=== PATIENT | male | born 1935 | race Hispanic/Latino ===

== ENCOUNTER 2018-04-05 03:55 | Inpatient (IN) | payer MEDICARE ==
[~2018-04-05] VITALS: Ht 172.7 cm; Wt 88.3 kg
[~2018-04-05 03:55] MED LIST: ASPIRIN PO; ASPIRIN81 MG PO; FISH OIL PO; LIPITOR; LOPRESSOR25 MG PO; LOSARTAN POTASS25 MG PO; LOVAZA; LOVAZA1 GM PO; METOPROLOL PO; PLAVIX; PLAVIX75 MG PO; PRAVASTATIN SOD10 MG PO
--- OUTSIDE RECORDS SUMMARY | 2018-04-05 03:57 | XMS REPORT | Summary of Care ---
Author Author VALENTINA CARRASQUILLO M.D. Organization Unknown Address Unknown Phone Unavailable Care Team Providers Care Azure Developer Name Role Phone VALENTINA CARRASQUILLO M.D. Unavailable Unavailable BONNIE MCKINNEY M.D. Unavailable Unavailable MARISSA BARNETT [facility], MARTINEZ Mullins Unavailable Unavailable MARTINEZ ANN M.D. Unavailable Unavailable Unavailable Functional Status Name Dates Details Functional status health issues are not documented Status: Name Dates Details Cognitive status health issues are not documented Status: Problems Name Dates Details Mixed hyperlipidemia (272.2, E78.2) Status: Active Type 2 diabetes mellitus (250.00, E11.9) Status: Active Essential (primary) hypertension (401.9, I10) Status: Active Hypercalcemia (275.42, E83.52) Status: Active Coronary artery disease (414.00, I25.10) Status: Active Medications Name Dates Details Clopidogrel Bisulfate 75 MG Oral Tablet TAKE 1 TABLET DAILY Quantity: 90 VALENTINA CARRASQUILLO M.D. * Start : 18-Dec-2011 Active Metoprolol Succinate ER 25 MG Oral Tablet Extended Release 24 Hour 1 a day per medical technician assistant * Refills: 0 FAYE M.Berenice., BONNIE * Start : 18-Dec-2011 Active Cozaar 50 MG Oral Tablet TAKE 1 TABLET DAILY. * Refills: 0 FAYE M.D., BONNIE * Start : 18-Dec-2011 Active Ecotrin Low Strength 81 MG Oral Tablet Delayed Release TAKE 1 TABLET DAILY. * Refills: 0 FAYE M.D., BONNIE * Start : 18-Dec-2011 Active Pravastatin Sodium 10 MG Oral Tablet TAKE 1 TABLET DAILY. * Refills: 0 Active Allergies and Adverse Reactions Name Dates Details No Known Drug Allergies (Allergy) Status: Active Past Medical History Name Dates Details History of Prostate Cancer (V10.46) Status: Resolved Procedures Procedure Dates Details History of Cholecystectomy Completed History of Cath Stent Placement Completed History of Prostate Surgery Completed Immunization Name Dates Details Immunizations not documented Family History Name Dates Details Family history of Hypertension (V17.49) Status: Active Social History Name Dates Details Unknown if ever smoked Vital Signs Date Test Result Details [id number] BP Systolic 143 mm[Hg] Status: Comments: Location: RUE; Position: Sitting BP Diastolic 77 mm[Hg] Status: Comments: Location: RUE; Position: Sitting Height 68 in Status: Weight 189 lb Status: Body Mass Index Calculated 28.74 kg/m2 Status: Body Surface Area Calculated 2 m2 Status: Heart Rate 52 /min Status: Comments: Location: R Radial; Results Date Description Value Details Results not documented Plan of Care Name Dates Details Planned Observations Planned Goals not documented Planned Encounters Appointment; VALENTINA CARRASQUILLO M.D. On: 24-Feb-2019 11:40 Instructions Name Dates Details Instructions not documented Encounters Appointment; VALENTINA CARRASQUILLO M.D. Encounter Diagnosis: Problem not documented On: 10-Sep-2017 9:20 Appointment; VALENTINA CARRASQUILLO M.D. Encounter Diagnosis: Problem not documented On: 25-Feb-2018 11:40
[2018-04-05] MEDS ORDERED: ASPIRIN 81 MG CHEW TAB PO ONE (04:15)
[2018-04-05] MEDS ORDERED: ACETAMINOPHEN 325 MG TAB PO ONE (04:15)
[2018-04-05] MEDS ORDERED: SODIUM CHLORIDE 0.9% 1000ML 1,000 ML IV ONE (04:15)
[2018-04-05 05:19] LABS: BASOPHILS % 0.3 % (0.0-1.0); EOSINOPHILS % 0.1 % (0.0-6.0); HEMATOCRIT 47.5 % (38.2-49.6); HEMOGLOBIN 16.3 g/dL (14.0-18.0); LYMPHOCYTES # (AUTO) 0.6 (1.0-3.2); LYMPHOCYTES % 8.7 % (18.0-39.1); MEAN CORPUSCULAR HEMOGLOBIN 30.1 pg (28-32); MEAN CORPUSCULAR HGB CONC 34.3 g/dL (31-35); MEAN CORPUSCULAR VOLUME 87.8 fL (81-99); MONOCYTES # (AUTO) 0.6 (0.2-0.8); MONOCYTES % 9.3 % (4.4-11.3); NEUTROPHILS # (AUTO) 5.5 (2.1-6.9); NEUTROPHILS % 81.3 % (38.7-80.0); PLATELET COUNT 202 x10e3/uL (140-360); RED BLOOD COUNT 5.41 x10e6/uL (4.3-5.7); RED CELL DISTRIBUTION WIDTH 12.4 % (11.7-14.4)
--- NOTE | 2018-04-05 05:22 | Diagnostic Imaging Report ---
EXAM: CHEST 2 VIEWS, PA and lateral INDICATION: Cough, fever COMPARISON: AP view of the chest January 20, 2011 FINDINGS: LINES/TUBES: None LUNGS: Right lower lobe airspace opacities. PLEURA: No effusions or pneumothorax. HEART AND MEDIASTINUM: Normal size and contour. BONES AND SOFT TISSUES: No acute findings. IMPRESSION: Right lower lobe airspace opacity suggestive of pneumonia in the setting of cough and fever Signed by: Dr. Angela Barnes M.D. on 04/05/2018 5:19 AM
[2018-04-05 05:26] LABS: BILIRUBIN,URINE NEGATIVE (NEGATIVE); CLARITY,URINE SL CLOUDY (CLEAR); COLOR,URINE YELLOW (YELLOW); KETONES,URINE 1+ (NEGATIVE); LEUKOCYTE ESTERASE ,URINE NEGATIVE (NEGATIVE); NITRITE,URINE NEGATIVE (NEGATIVE); PROTEIN,URINE DIPSTICK TRACE (NEGATIVE); URINE UROBILINOGEN 0.2 mg/dL (0.2 - 1)
[2018-04-05 05:39] LABS: STREPTOCOCCUS GRP A ANTIGEN NEGATIVE (NEGATIVE)
[2018-04-05 05:41] LABS: WBC,URINE (MAN) 0-5 /HPF (0-5)
[2018-04-05 05:42] LABS: BACTERIA,URINE MODERATE /HPF; EPITHELIAL CELLS,URINE RARE /LPF; RBC,URINE 21-50 /HPF (0-5); TRANSITIONAL EPI CELLS,URINE RARE
[2018-04-05 05:43] LABS: YEAST,URINE RARE
[2018-04-05 05:47] LABS: INFLUENZAE A&B ANTIGEN (RAPID) POSITIVE FLU A (NEGATIVE)
[2018-04-05 05:59] LABS: ALANINE AMINOTRANSFERASE 44 IU/L (0-55); ALBUMIN 4.2 g/dL (3.5-5.0); ALBUMIN/GLOBULIN RATIO 1.3 (0.8-2.0); ALKALINE PHOSPHATASE 91 IU/L (40-150); ANION GAP 14.1 mmol/L (8-16); BLOOD UREA NITROGEN 13 mg/dL (7-26); BUN/CREATININE RATIO 13 (6-25); CALCIUM 10.7 mg/dL (8.4-10.2); CARBON DIOXIDE 25 mmol/L (22-29); CHLORIDE 96 mmol/L (98-107); CREATINE KINASE 83 IU/L (30-200); CREATININE, SERUM 0.98 mg/dL (0.72-1.25); EST GLOMERULAR FILTRATION RATE > 60 ML/MIN (60-); GLUCOSE 175 mg/dL (74-118); POTASSIUM 4.1 mmol/L (3.5-5.1); SODIUM 131 mmol/L (136-145)
[2018-04-05] MEDS ORDERED: SODIUM CHLORIDE 0.9% 250ML 250 ML ONE (06:12)
[2018-04-05] MEDS ORDERED: ONDANSETRON HCL INJ 2MG/ML 2ML 2 MG/ML VIAL IV PRN (06:15)
[2018-04-05] MEDS ORDERED: ACETAMINOPHEN 325 MG TAB PO PRN (06:15)
[2018-04-05] MEDS: CEFTRIAXONE SOD 1 GM/NS 50 ML 50 ML IV SCH (06:21)
[2018-04-05] MEDS: OSELTAMIVIR PHOSPHATE 75 MG CAP PO SCH ×3 (06:21→16:43)
[2018-04-05] MEDS: SODIUM CHLORIDE 0.9% 1000ML 1,000 ML IV SCH ×3 (06:22→22:14)
[2018-04-05] MEDS ORDERED: SODIUM CHLORIDE 0.9% 1000ML 1,000 ML ONE (06:27)
--- OUTSIDE RECORDS SUMMARY | 2018-04-05 06:34 | XMS REPORT ---
Author Author [facility] Address Unknown Phone Unavailable Care Team Providers Care Physical Optics Teacher Name Role Phone Cheryle GRAVES Unavailable Unavailable Problems This patient has no known problems. Allergies, Adverse Reactions, Alerts This patient has no known allergies or adverse reactions. Medications This patient has no known medications. Results Test Description Test Time Test Comments Text Results Atomic Results Result Comments CHEST 2 VIEWS 2018-04-05 05:17:00 [facility] [address] [place] [address] Patient Name: ARSENIO DORANTES JR MR #: [id number] : 1935 Age/Sex: 83/M Req #: [id number] Adm Physician: Ordered by: WAYLON GRAVES MD Report #: [id number] Location: ER Room/Bed: Procedure: [id number] DX/CHEST 2 VIEWS Exam Date: Exam Time: REPORT STATUS: Signed EXAM: CHEST 2 VIEWS, PA and lateral INDICATION: Cough, fever COMPARISON: AP view of the chest January 20, 2011 FINDINGS: LINES/TUBES: None LUNGS: Right lower lobe airspace opacities. PLEURA: No effusions or pneumothorax. HEART AND MEDIASTINUM: Normal size and contour. BONES AND SOFT TISSUES: No acute findings. IMPRESSION: Right lower lobe airspace opacity suggestive of pneumonia in the setting of cough and fever Signed by: Dr. Geraldo Schmidt M.D. on 04/05/2018 5:19 AM Dictated By: GERALDO SCHMIDT MD 8 Transcribed By: ANTON on 04/05/18518 COPY TO: WAYLON GRAVES MD
[2018-04-05] MEDS: AZITHROMYCIN 500MG/NS 250 ML 250 ML IV SCH (06:50)
[2018-04-05] MEDS: ALBUTEROL SULF 0.083% NEB SOLN 3 ML NEB NEB SCH ×5 (07:00→23:45)
[2018-04-05] MEDS: IPRATROPIUM BROMIDE 0.02% 2.5 ML NEB NEB SCH ×4 (07:00→23:45)
--- NOTE | 2018-04-05 07:00 | NUR ---
RECEIVED REPORT FROM OFF GOING NURSE. PATIENT IN ROOM IN BED, AWAKE AND ALERT. NO S/S OF ACUTE DISTRESS. RESP EVEN AND NONLABORED. NO C/O PAIN OR DISCOMFORT AT THIS TIME. PENDING ROOM ASSIGNMENT FOR ADMISSION. BED DOWN, CALL LIGHTIN REACH, WILL CONTINUE TO MONITOR.
--- NOTE | 2018-04-05 07:29 | History and Physical ---
This is an 83-year-old gentleman who comes in with severe fever, chills, sore throat, and coughing. HISTORY OF PRESENT ILLNESS: This is Mr. Pagan who is an 83-year-old gentleman with a history of hypertension, history of coronary artery disease, was in his usual state of health until the patient started with fever, chills, and cough for the past 2 days. Feeling very lethargic and very tired and congested. The patient came into the emergency room with fever. Was diagnosed with influenza virus and also with pneumonia, and admitted for further care. PAST MEDICAL HISTORY: History of hypertension, history of coronary artery disease, history of prostate cancer, history of hypertension, history of hyperlipidemia. MEDICATIONS: He takes at home are: 1. Aspirin 81 mg. 2. Plavix 75 mg daily. 3. Losartan 25 mg daily. 4. Metoprolol 25 mg bid. 5. Leroy-3 fatty acid, Lovaza. 6. Pravastatin 10 mg at nighttime. SURGICAL HISTORY: Includes history of cholecystectomy, history of prostate surgery, history of coronary stents 4 times, and his service consultant is in [place] [facility]. ALLERGIES: NO DRUG ALLERGIES PRESENT. REVIEW OF SYSTEMS: Negative for chest pain. Positive for shortness of breath. No nausea, vomiting, diarrhea. No constipation, rectal bleeding, hematochezia, and no hematemesis. No diplopia. No blurry vision. Positive for fever and positive for chills and congestion. SOCIAL HISTORY: Noncontributory. No smoking. No ETOH. No IV drug abuse. PHYSICAL EXAMINATION GENERAL: The patient is alert and oriented times 3. VITAL SIGNS: Temperature is 102.9, pulse of 119, blood pressure is 157/96, respirations of 24, pulse ox 94% on 2 L of oxygen. HEENT: Normocephalic and atraumatic. The patient looks very lethargic. CV: S1 and S2 normal. Regular rate and rhythm. ABDOMEN: Nontender and nondistended. LUNGS: Positive for crackles and rhonchi present in the right lower lung field. EXTREMITIES: No clubbing. No cyanosis. No edema. LABORATORY VALUES: White count is 6.7, hemoglobin of 16.3, hematocrit of 47.5. Chemistry: Sodium of 131, potassium 4.1, BUN of 13, creatinine 0.98 with a glucose of 175. Lactic acid was 15.9. Calcium 10.7. Urine, throat culture and blood cultures are pending. The patient's urine did show a moderate amount of bacteria. Urine yeast rare and leukocyte esterase was negative. Nitrate was also negative. Chest x-ray shows right-sided infiltrates seen. ASSESSMENT: An 83-year-old gentleman with: 1. Fever. 2. Congestion. 3. Positive for flu, influenza A: Plan is give him Tamiflu 75 mg twice a day. Will continue the same. The patient also has right-sided pneumonia. Has been started on Rocephin and azithromycin. Will continue the same. Albuterol and Atrovent treatments will be given. 4. For the patient's coronary artery disease, will start back on his metoprolol and his losartan. Also, aspirin and Plavix for his coronary artery disease. 5. Hypertension: Same. Continue antihypertensive medications. 6. The patient has an elevated white count and blood glucose: Will check his hemoglobin A1c. 7. The patient also has hyponatremia: Fluid resuscitation for dehydration. Will continue monitoring the patient very closely. Albuterol and Atrovent treatments have been started, and fluids also have been started for hyponatremia. Further recommendations per clinical course. Will check labs in the morning and continue with the current medications. Job#: [id number] JHONY
[2018-04-05] MEDS: ASPIRIN 81 MG CHEW TAB PO SCH (08:40)
[2018-04-05] MEDS: LOSARTAN POTASSIUM 25 MG TAB PO SCH (08:40)
[2018-04-05] MEDS: CLOPIDOGREL BISULFATE 75 MG TAB PO SCH (08:40)
[2018-04-05] MEDS: METOPROLOL TARTRATE 25 MG TAB PO SCH (08:41)
[2018-04-05] MEDS: OMEGA 3 POLYUNSAT FATTY ACIDS 1000 MG SOFTGEL PO SCH ×2 (08:41→16:43)
--- NOTE | 2018-04-05 08:42 | NUR ---
placed patient onto hospital bed. patient exited stretcher and stood unassisted while beds were exchanged. patient back in bed, bed in low position with wheels locked and call light on side rail, in patients reach.
[2018-04-05 13:03] LABS: CREATINE KINASE MB 0.5 ng/mL (0-5.0)
[2018-04-05 16:00] VITALS: BP 145/77
--- NOTE | 2018-04-05 16:00 | NUR ---
PATIENT ARRIVED TO ROOM 297 AROUND 1550. HE IS AAOX4, AMBULATORY WITH STAND BY ASSIST. ADMISSION HISTORY AND INITIAL PHYSICAL ASSESSMENT COMPLETED. PATIENT AND FAMILY ORIENTED TO ROOM, VISITING HOURS, AND POLICIES. CALL LIGHT WITHIN REACH. BED IN THE LOWEST POSITION.
[2018-04-05 16:16] VITALS: BP 145/77
--- NOTE | 2018-04-05 19:47 | NUR ---
REPORT GIVEN TO ONCOMING NURSE, PATIENT IS RESTING IN BED. NO ACUTE DISTRESS NOTED. FAMILY AT BEDSIDE .CALL LIGHT WITHIN REACH. BED IN THE LOWEST POSITION.
[2018-04-05 20:00] VITALS: BP 125/80
[2018-04-05 21:15] LABS: CREATINE KINASE MB 0.6 ng/mL (0-5.0)
[2018-04-05] MEDS: PRAVASTATIN 20 MG TAB PO SCH (22:59)
[2018-04-06] VITALS (8 sets, daily range): BP systolic 120–155; BP diastolic 60–82
[2018-04-06] MEDS: ALBUTEROL SULF 0.083% NEB SOLN 3 ML NEB NEB SCH ×6 (03:00→23:16)
[2018-04-06] MEDS: CEFTRIAXONE SOD 1 GM/NS 50 ML 50 ML IV SCH (05:34)
[2018-04-06] MEDS: SODIUM CHLORIDE 0.9% 1000ML 1,000 ML IV SCH ×2 (06:14→10:22)
[2018-04-06 06:17] LABS: BASOPHILS % 0.3 % (0.0-1.0); HEMATOCRIT 43.6 % (38.2-49.6); HEMOGLOBIN 14.4 g/dL (14.0-18.0); LYMPHOCYTES # (AUTO) 1.4 (1.0-3.2); MEAN CORPUSCULAR HEMOGLOBIN 30.1 pg (28-32); MONOCYTES # (AUTO) 0.6 (0.2-0.8); MONOCYTES % 14.9 % (4.4-11.3); NEUTROPHILS # (AUTO) 1.9 (2.1-6.9); NEUTROPHILS % 48.5 % (38.7-80.0); PLATELET COUNT 168 x10e3/uL (140-360); RED BLOOD COUNT 4.79 x10e6/uL (4.3-5.7); RED CELL DISTRIBUTION WIDTH 12.7 % (11.7-14.4)
[2018-04-06 06:20] LABS: ALANINE AMINOTRANSFERASE 43 IU/L (0-55); ALBUMIN 3.3 g/dL (3.5-5.0); ALBUMIN/GLOBULIN RATIO 1.2 (0.8-2.0); ALKALINE PHOSPHATASE 65 IU/L (40-150); ANION GAP 11.9 mmol/L (8-16); BLOOD UREA NITROGEN 10 mg/dL (7-26); BUN/CREATININE RATIO 13 (6-25); CALCIUM 9.4 mg/dL (8.4-10.2); CARBON DIOXIDE 24 mmol/L (22-29); CHLORIDE 103 mmol/L (98-107); CREATININE, SERUM 0.78 mg/dL (0.72-1.25); EST GLOMERULAR FILTRATION RATE > 60 ML/MIN (60-); GLUCOSE 100 mg/dL (74-118); POTASSIUM 3.9 mmol/L (3.5-5.1); SODIUM 135 mmol/L (136-145)
[2018-04-06] MEDS: AZITHROMYCIN 500MG/NS 250 ML 250 ML IV SCH (06:34)
--- NOTE | 2018-04-06 06:49 | NUR ---
REPORT GIVEN TO AM NURSE. PATIENT CONTINUE RESTING WATCHING TV. IV INFUSING, WILL CONTINUE TO MONITOR.
[2018-04-06] MEDS: IPRATROPIUM BROMIDE 0.02% 2.5 ML NEB NEB SCH ×3 (07:00→19:18)
--- NOTE | 2018-04-06 07:08 | NUR ---
RECEIVED PATIENT RESTING IN BED, RESPIRATIONS EVEN AND UNLABORED. NO SOB OR ACUTE DISTRESS NOTED. CALL LIGHT WITHIN REACH. BED IN THE LOWEST POSITION.
--- NOTE | 2018-04-06 07:40 | Progress Note ---
DATE: April 06, 2018 The patient is here for pneumonia and flu. Currently, the patient is receiving Tamiflu, azithromycin and Rocephin, too. Doing much better. Fluids are running. The patient's pain is controlled, and cough is also controlled. LABORATORY VALUES: White count is 3.89, hemoglobin 14, hematocrit 43.6. Chemistries show sodium 135, BUN 10, creatinine 0.78. MEDICATIONS: Include azithromycin, ceftriaxone, Tamiflu, metoprolol, losartan and sodium chloride at 125 mL an hour. PHYSICAL EXAMINATION VITAL SIGNS: Temperature is 96.0. Pulse ox is 92% on room air. HEENT: Normocephalic and atraumatic. Pupils react to light and accommodation. CV: S1 and S2 normal. Regular rate and rhythm. ABDOMEN: Nontender and nondistended. EXTREMITIES: No clubbing. No cyanosis. No edema. ASSESSMENT 1. Pneumonia associated with influenza. Will continue giving the patient antibiotics. The IV fluids will be reduced to 75 mL an hour. Chest x-ray repeated tomorrow. 2. Congestive heart failure. Will continue on his medications. 3. Hypertension. Continue with medications. PLAN: The patient is feeling better. Check his labs tomorrow. Cut down the fluids to 75 mL an hour and possible discharge tomorrow on Tamiflu. Job#: [id number]
[2018-04-06] MEDS: OMEGA 3 POLYUNSAT FATTY ACIDS 1000 MG SOFTGEL PO SCH ×2 (08:56→17:06)
[2018-04-06] MEDS: LOSARTAN POTASSIUM 25 MG TAB PO SCH (08:56)
[2018-04-06] MEDS: METOPROLOL TARTRATE 25 MG TAB PO SCH (08:56)
[2018-04-06] MEDS: ASPIRIN 81 MG CHEW TAB PO SCH (08:56)
[2018-04-06] MEDS: OSELTAMIVIR PHOSPHATE 75 MG CAP PO SCH ×2 (08:57→17:06)
[2018-04-06] MEDS: CLOPIDOGREL BISULFATE 75 MG TAB PO SCH (08:57)
--- NOTE | 2018-04-06 19:06 | NUR ---
REPORT GIVEN TO ONCOMING NURSE. PATIENT IS RESTING IN BED. NO ACUTE DISTRESS NOTED, RESPIRATIONS EVEN AND UNLABORED. CALL LIGHT WITHIN REACH. BED IN THE LOWEST POSITION.
[2018-04-06] MEDS: PRAVASTATIN 20 MG TAB PO SCH (20:11)
[2018-04-07] VITALS: BP 125/68
[2018-04-07] MEDS: IPRATROPIUM BROMIDE 0.02% 2.5 ML NEB NEB SCH ×3 (01:00→10:45)
[2018-04-07] MEDS: ALBUTEROL SULF 0.083% NEB SOLN 3 ML NEB NEB SCH ×3 (03:00→10:45)
[2018-04-07 04:00] VITALS: BP 126/78
[2018-04-07] MEDS: CEFTRIAXONE SOD 1 GM/NS 50 ML 50 ML IV SCH (04:52)
[2018-04-07] MEDS: AZITHROMYCIN 500MG/NS 250 ML 250 ML IV SCH (05:41)
[2018-04-07 05:49] LABS: BASOPHILS % 0.2 % (0.0-1.0); EOSINOPHILS % 0.4 % (0.0-6.0); HEMATOCRIT 43.9 % (38.2-49.6); HEMOGLOBIN 14.8 g/dL (14.0-18.0); LYMPHOCYTES # (AUTO) 1.5 (1.0-3.2); LYMPHOCYTES % 32.6 % (18.0-39.1); MEAN CORPUSCULAR HEMOGLOBIN 30.3 pg (28-32); MEAN CORPUSCULAR HGB CONC 33.7 g/dL (31-35); MONOCYTES # (AUTO) 0.4 (0.2-0.8); MONOCYTES % 9.3 % (4.4-11.3); NEUTROPHILS # (AUTO) 2.6 (2.1-6.9); NEUTROPHILS % 57.3 % (38.7-80.0); PLATELET COUNT 185 x10e3/uL (140-360); RED BLOOD COUNT 4.88 x10e6/uL (4.3-5.7); RED CELL DISTRIBUTION WIDTH 12.5 % (11.7-14.4)
[2018-04-07 06:12] LABS: ANION GAP 11.6 mmol/L (8-16); BLOOD UREA NITROGEN 8 mg/dL (7-26); BUN/CREATININE RATIO 11 (6-25); CALCIUM 9.4 mg/dL (8.4-10.2); CARBON DIOXIDE 24 mmol/L (22-29); CHLORIDE 103 mmol/L (98-107); CREATININE, SERUM 0.76 mg/dL (0.72-1.25); EST GLOMERULAR FILTRATION RATE > 60 ML/MIN (60-); GLUCOSE 124 mg/dL (74-118); POTASSIUM 3.6 mmol/L (3.5-5.1); SODIUM 135 mmol/L (136-145)
--- NOTE | 2018-04-07 06:43 | Diagnostic Imaging Report ---
EXAMINATION: CHEST 2 VIEWS INDICATION: pneumonia COMPARISON: 04/05/2018 FINDINGS: PA and lateral views TUBES and LINES: None. LUNGS: Lungs are well inflated. Slightly decreased conspicuity of the right lower lobe airspace opacities. PLEURA: No pleural effusion or pneumothorax. HEART AND MEDIASTINUM: The cardiomediastinal silhouette is unremarkable. BONES AND SOFT TISSUES: No acute osseous lesion. Soft tissues are unremarkable. UPPER ABDOMEN: No free air under the diaphragm. IMPRESSION: Slightly decreased conspicuity of the right lower lobe airspace opacities suggestive of pneumonia in the setting of fever and cough. Signed by: DR. Dyllan Gaspar MD on 04/07/2018 6:40 AM
--- NOTE | 2018-04-07 07:40 | Discharge Summary ---
DATE: Patient is admitted for flu and viral pneumonia. Patient is currently feeling better. No complaints. Patient has been well hydrated. No chest pain. No shortness of breath, nausea, vomiting, diarrhea, constipation, or rectal bleeding. OBJECTIVE VITAL SIGNS: Temperature is 96.6, pulse of 70, respirations of 18, blood pressure of 126/78. HEENT: Normocephalic and atraumatic. Pupils are reactive to light and accommodation. LUNGS: Clear to auscultation bilaterally. ABDOMEN: Nontender and nondistended. EXTREMITIES: No clubbing. No cyanosis. No edema. Chest x-ray done today repeat shows slightly decreased right lower lobe airspace opacity suggestive of pneumonia. Patient is doing better clinically. Will go ahead and discharge the patient for his flu on 1. Tamiflu for 3 more days. 2. Will discharge the patient on Levaquin 250 mg for pneumonia. 3. Patient has hypertension and congestive heart failure. Will continue with CV medications. Patient is to come to the clinic in about a week and also give him some albuterol on discharge. Further recommendations as an outpatient. Will continue monitoring the patient along with his PCP as an outpatient. Job#: [id number] JHONY
[2018-04-07 08:32] VITALS: BP 126/66
[2018-04-07 09:20] VITALS: BP 126/66
--- NOTE | 2018-04-07 09:20 | NUR ---
Pt received resting in bed. Alert and oriented x4 on droplet isolation for Influenza A. Oriented to staff and surroundings. Encouraged to press call rizo if help needed. All meds given as ordered. Call rizo within reach. Will monitor closely.
[2018-04-07] MEDS: CLOPIDOGREL BISULFATE 75 MG TAB PO SCH (09:22)
[2018-04-07] MEDS: OSELTAMIVIR PHOSPHATE 75 MG CAP PO SCH (09:22)
[2018-04-07] MEDS: OMEGA 3 POLYUNSAT FATTY ACIDS 1000 MG SOFTGEL PO SCH (09:22)
[2018-04-07] MEDS: LOSARTAN POTASSIUM 25 MG TAB PO SCH (09:23)
[2018-04-07] MEDS: ASPIRIN 81 MG CHEW TAB PO SCH (09:23)
[2018-04-07] MEDS: METOPROLOL TARTRATE 25 MG TAB PO SCH (09:23)
[2018-04-07] MEDS ORDERED: TAMIFLU75 MG PO (09:43)
[2018-04-07] MEDS ORDERED: LEVAQUIN500 MG PO (09:43)
[2018-04-07] MEDS ORDERED: PROAIR HFA INH8.5 GM PO (09:44)
--- NOTE | 2018-04-07 11:10 | NUR ---
Pt educated regarding meds, diet, activities, and follow up appointment with PCP. Pt verbalized understanding of teaching. Leaving via wheelchair to private car
== END 2018-04-07 11:33 | disposition home or self-care (01) | DRG 194 ==
LOC: ER 03:55 → ERHOLD 06:30 → MED/SURG3 16:00
PROVIDERS: ADMIT Family Medicine; ATTEND Family Medicine
DX: J10.08 Influenza due to other identified influenza virus with other specified pneumonia (principal); E87.1 Hypo-osmolality and hyponatremia; J12.9 Viral pneumonia, unspecified; I25.10 Atherosclerotic heart disease of native coronary artery without angina pectoris; I10 Essential (primary) hypertension; Z95.5 Presence of coronary angioplasty implant and graft; Z85.46 Personal history of malignant neoplasm of prostate; E78.5 Hyperlipidemia, unspecified; E86.0 Dehydration; Z87.891 Personal history of nicotine dependence; Z79.02 Long term (current) use of antithrombotics/antiplatelets; Z79.82 Long term (current) use of aspirin
CPT/HCPCS: 36415; 71046; 80048; 80053; 81001; 82550; 82553; 83518; 83605; 84484; 85025; 87040; 87070; 87400; 93005; 94640; 99285; J0456; J0696; J7030; J7050

== ENCOUNTER → 2019-12-16 | Outpatient (CLI) | payer MEDICARE ==
[~2019-12-16] MED LIST changes: +DIATRIZOATE MEGL/DIATRIZOA SOD 30 ML BTL PO ONE; +IOPAMIDOL 370 MG/ML 200 ML INFUS..BTL INJ ONE; +LEVAQUIN500 MG PO; +PROAIR HFA INH8.5 GM PO; +SODIUM CHLORIDE 0.9% 50ML 50 ML ONE; +TAMIFLU75 MG PO
[2019-12-16 10:33] LABS: BLOOD UREA NITROGEN 14 mg/dL (7-26); BUN/CREATININE RATIO 18 (6-25); CREATININE, SERUM 0.76 mg/dL (0.72-1.25); EST GLOMERULAR FILTRATION RATE > 60 ML/MIN (60-)
== END ==
LOC: CT 09:30
PROVIDERS: ATTEND Family Medicine
DX: K57.20 Diverticulitis of large intestine with perforation and abscess without bleeding (principal)
CPT/HCPCS: 36415; 74177; 82565; 84520; Q9967

== ENCOUNTER → 2021-03-18 | Outpatient (CLI) | payer MEDICARE ==
[~2021-03-18] MED LIST changes: +CIPRO500 MG PO; +FLAGYL375 MG PO; +METRONIDAZOLE500 MG PO
[2021-03-18 14:16] LABS: CREATININE, SERUM 0.85 mg/dL (0.72-1.25)
== END ==
LOC: CT 13:23
PROVIDERS: ATTEND Family Medicine
DX: R10.30 Lower abdominal pain, unspecified (principal)
CPT/HCPCS: 36415; 74177; 82565; 84520; Q9967

== ENCOUNTER 2021-03-19 10:55 | Inpatient (IN) | payer MEDICARE ==
[~2021-03-19] VITALS: Ht 172.7 cm; Wt 88.0 kg
[~2021-03-19 10:55] MED LIST changes: -CIPRO500 MG PO; -DIATRIZOATE MEGL/DIATRIZOA SOD 30 ML BTL PO ONE; -FLAGYL375 MG PO; -IOPAMIDOL 370 MG/ML 200 ML INFUS..BTL INJ ONE; -METRONIDAZOLE500 MG PO; -SODIUM CHLORIDE 0.9% 50ML 50 ML ONE
[2021-03-19] MEDS ORDERED: PIPERACILLIN/TAZOBACTAM 3.375 GM in SODIUM CHLORIDE 0.9% 50ML 50 ML IV STA (11:42)
[2021-03-19] MEDS ORDERED: SODIUM CHLORIDE 0.9% 1000ML 1,000 ML IV STA (11:42)
[2021-03-19] MEDS ORDERED: METRONIDAZOLE 500MG/NS 100ML 100 ML IV SCH (11:45)
[2021-03-19 11:56] LABS: BASOPHILS % 0.4 % (0.0-1.0); EOSINOPHILS # (AUTO) 0.2 (0.0-0.4); EOSINOPHILS % 2.4 % (0.0-6.0); HEMATOCRIT 45.7 % (38.2-49.6); HEMOGLOBIN 14.8 g/dL (14.0-18.0); LYMPHOCYTES # (AUTO) 1.9 (1.0-3.2); LYMPHOCYTES % 22.4 % (18.0-39.1); MEAN CORPUSCULAR HEMOGLOBIN 29.5 pg (28-32); MEAN CORPUSCULAR HGB CONC 32.4 g/dL (31-35); MONOCYTES # (AUTO) 0.7 (0.2-0.8); MONOCYTES % 8.8 % (4.4-11.3); NEUTROPHILS # (AUTO) 5.5 (2.1-6.9); NEUTROPHILS % 65.6 % (38.7-80.0); PLATELET COUNT 342 x10e3/uL (140-360); RED BLOOD COUNT 5.02 x10e6/uL (4.3-5.7); RED CELL DISTRIBUTION WIDTH 12.2 % (11.7-14.4)
[2021-03-19] MEDS ORDERED: METRONIDAZOLE 500 MG TAB PO SCH (12:00)
[2021-03-19 12:11] LABS: CLARITY,URINE CLOUDY (CLEAR); COLOR,URINE YELLOW (YELLOW); KETONES,URINE 1+ (NEGATIVE); LEUKOCYTE ESTERASE ,URINE MODERATE (NEGATIVE); NITRITE,URINE NEGATIVE (NEGATIVE); PROTEIN,URINE DIPSTICK 1+ (NEGATIVE)
[2021-03-19 12:12] LABS: URINE UROBILINOGEN 0.2 mg/dL (0.2 - 1)
[2021-03-19 12:15] LABS: INR 0.97; PROTHROMBIN TIME 13.7 seconds (11.9-14.5)
[2021-03-19 12:21] LABS: ALBUMIN/GLOBULIN RATIO 1.3 (0.8-2.0); ANION GAP 13.5 mmol/L (8-16); CALCIUM 12.9 mg/dL (8.4-10.2); CREATININE, SERUM 1.01 mg/dL (0.72-1.25); POTASSIUM 4.5 mmol/L (3.5-5.1)
[2021-03-19 12:26] LABS: RBC,URINE 21-50 /HPF (0-5); WBC,URINE (MAN) >50 /HPF (0-5)
[2021-03-19 12:27] LABS: BACTERIA,URINE MODERATE /HPF; EPITHELIAL CELLS,URINE FEW /LPF
[2021-03-19 12:28] LABS: CREATINE KINASE MB 0.9 ng/mL (0-5.0)
[2021-03-19] MEDS ORDERED: Clindamycin INJ 900 MG 900 MG in SODIUM CHLORIDE 0.9% 50ML 50 ML IV SCH (12:30)
[2021-03-19] MEDS ORDERED: Morphine 2mg Syringe 2 MG/ML SYR IV PRN (12:45)
[2021-03-19] MEDS ORDERED: ONDANSETRON HCL INJ 2MG/ML 2ML 2 MG/ML VIAL IV PRN (12:45)
[2021-03-19 16:16] VITALS: BP 124/63
[2021-03-19 16:30] VITALS: BP 124/63
[2021-03-19] MEDS: SODIUM CHLORIDE 0.9% 1000ML 1,000 ML IV SCH ×2 (17:11→22:28)
[2021-03-19 20:52] VITALS: BP 132/73
[2021-03-19 21:20] VITALS: BP 132/73
[2021-03-19] MEDS: Clindamycin INJ 900 MG 900 MG in SODIUM CHLORIDE 0.9% 50ML 50 ML IV SCH (21:20)
[2021-03-20] VITALS (8 sets, daily range): BP systolic 116–148; BP diastolic 63–73
[2021-03-20] MEDS: Clindamycin INJ 900 MG 900 MG in SODIUM CHLORIDE 0.9% 50ML 50 ML IV SCH ×3 (05:37→21:31)
[2021-03-20 05:41] LABS: BASOPHILS % 0.3 % (0.0-1.0); EOSINOPHILS # (AUTO) 0.2 (0.0-0.4); EOSINOPHILS % 2.8 % (0.0-6.0); HEMATOCRIT 41.5 % (38.2-49.6); HEMOGLOBIN 13.4 g/dL (14.0-18.0); LYMPHOCYTES # (AUTO) 1.8 (1.0-3.2); LYMPHOCYTES % 25.6 % (18.0-39.1); MEAN CORPUSCULAR HEMOGLOBIN 29.3 pg (28-32); MEAN CORPUSCULAR HGB CONC 32.3 g/dL (31-35); MEAN CORPUSCULAR VOLUME 90.8 fL (81-99); MONOCYTES # (AUTO) 0.6 (0.2-0.8); MONOCYTES % 8.3 % (4.4-11.3); NEUTROPHILS # (AUTO) 4.4 (2.1-6.9); NEUTROPHILS % 62.7 % (38.7-80.0); PLATELET COUNT 307 x10e3/uL (140-360); RED BLOOD COUNT 4.57 x10e6/uL (4.3-5.7); RED CELL DISTRIBUTION WIDTH 12.1 % (11.7-14.4)
[2021-03-20 06:15] LABS: ALBUMIN 3.1 g/dL (3.5-5.0); ALBUMIN/GLOBULIN RATIO 0.9 (0.8-2.0); ANION GAP 12.5 mmol/L (8-16); CALCIUM 10.8 mg/dL (8.4-10.2); CREATININE, SERUM 0.74 mg/dL (0.72-1.25); POTASSIUM 4.5 mmol/L (3.5-5.1)
[2021-03-20] MEDS ORDERED: ONDANSETRON HCL 4 MG ORAL DISINTEGRATING TAB PO PRN (08:00)
[2021-03-20] MEDS ORDERED: LOSARTAN POTASSIUM 25 MG TAB PO SCH (09:00)
[2021-03-20] MEDS: METOPROLOL TARTRATE 25 MG TAB PO SCH (09:00)
[2021-03-20] MEDS ORDERED: CLOPIDOGREL BISULFATE 75 MG TAB PO SCH (09:00)
[2021-03-20] MEDS: SODIUM CHLORIDE 0.9% 1000ML 1,000 ML IV SCH ×2 (11:14→12:05)
[2021-03-20] MEDS ORDERED: ACETAMINOPHEN 325 MG TAB PO PRN (15:00)
[2021-03-20] MEDS ORDERED: PRAVASTATIN 20 MG TAB PO SCH (21:00)
[2021-03-21 00:03] VITALS: BP 114/62
[2021-03-21] MEDS: SODIUM CHLORIDE 0.9% 1000ML 1,000 ML IV SCH ×2 (00:35→14:45)
[2021-03-21] MEDS: Clindamycin INJ 900 MG 900 MG in SODIUM CHLORIDE 0.9% 50ML 50 ML IV SCH ×2 (05:16→12:47)
[2021-03-21 06:01] VITALS: BP 129/67
[2021-03-21] MEDS ORDERED: PANTOPRAZOLE SOD 40 MG TABEC PO SCH (07:30)
[2021-03-21 07:47] VITALS: BP 125/74
[2021-03-21] MEDS ORDERED: ASPIRIN 81 MG ENTERIC COATED PO SCH (09:00)
[2021-03-21] MEDS ORDERED: LOSARTAN POTASSIUM 100 MG TAB PO SCH (09:00)
[2021-03-21] MEDS: METOPROLOL TARTRATE 25 MG TAB PO SCH (09:00)
[2021-03-21 10:54] VITALS: BP 125/74
[2021-03-21 11:58] VITALS: BP 119/82
[2021-03-21 16:21] VITALS: BP 155/81
[2021-03-21] MEDS ORDERED: CIPRO500 MG PO (16:28)
[2021-03-21] MEDS ORDERED: METRONIDAZOLE500 MG PO (16:29)
[2021-03-21] MEDS ORDERED: FLAGYL375 MG PO (16:29)
== END 2021-03-21 18:13 | disposition home or self-care (01) | DRG 392 ==
LOC: ER 12:00 → ERHOLD 12:56 → MED/SURG 14:20
PROVIDERS: ADMIT Family Medicine; ATTEND Family Medicine
DX: K57.20 Diverticulitis of large intestine with perforation and abscess without bleeding (principal); N32.1 Vesicointestinal fistula; I10 Essential (primary) hypertension; C61 Malignant neoplasm of prostate; E78.5 Hyperlipidemia, unspecified; N40.0 Benign prostatic hyperplasia without lower urinary tract symptoms; N50.0 Atrophy of testis; D64.9 Anemia, unspecified; E83.52 Hypercalcemia; E27.8 Other specified disorders of adrenal gland; R39.89 Other symptoms and signs involving the genitourinary system; N20.0 Calculus of kidney; N30.90 Cystitis, unspecified without hematuria; Z90.49 Acquired absence of other specified parts of digestive tract; Z95.5 Presence of coronary angioplasty implant and graft; Z87.440 Personal history of urinary (tract) infections; I25.10 Atherosclerotic heart disease of native coronary artery without angina pectoris
CPT/HCPCS: 36415; 71045; 80053; 81001; 82550; 82553; 83970; 84484; 85025; 85610; 85730; 87040; 87086; 87186; 93005; 99284; J2543; J7030; U0002